=== PATIENT | male | born 1985 | race Hispanic/Latino ===

== ENCOUNTER 2023-01-11 19:37 | Emergency (ER) | payer BC ==
[~2023-01-11] VITALS: Ht 167.6 cm; Wt 139.3 kg
[~2023-01-11 19:37] MED LIST: ERYT1OIN7 OP
[2023-01-11] MEDS ORDERED: MAGNESIUM HYDROXIDE 30 ML/UDCUP PO SCH (20:00)
[2023-01-11] MEDS ORDERED: MORPHINE 2 MG SYG IVP ONE (22:00)
[2023-01-11] MEDS ORDERED: ONDANSETRON 4MG INJ IVP ONE (22:00)
[2023-01-11] MEDS ORDERED: 0.9%NACL 1000ML 1,000 ML IV ONE (22:00)
[2023-01-11] MEDS ORDERED: LACTATED RINGERS 1000ML 1,000 ML IV ONE (22:00)
[2023-01-11 22:01] VITALS: BP 128/63; PULSE 80; RESP 17; O2SAT 99
[2023-01-11 22:32] LABS: BASOPHILS # (AUTO) 0.07 K/uL (0.00-0.20); BASOPHILS % (AUTO) 0.5 % (0.0-5.0); EOSINOPHILS # (AUTO) 0.15 K/uL (0.00-0.70); HEMATOCRIT 38.8 % (42-54); IMMATURE GRANULOCYTE ABSOLUTE 0.14 K/uL (0-1); LYMPHOCYTES # (AUTO) 2.9 K/uL (1.0-4.8); LYMPHOCYTES % (AUTO) 19.2 % (21.0-51.0); MEAN CORPUSCULAR HEMOGLOBIN 27.2 pg (27.0-33.0); MEAN CORPUSCULAR VOLUME 82.4 fL (79-99); MONOCYTES # (AUTO) 0.8 K/uL (0.1-1.0); MONOCYTES % (AUTO) 5.3 % (3.0-13.0); NEUTROPHILS # (AUTO) 10.9 K/uL (1.8-7.7); NEUTROPHILS % (AUTO) 73.1 % (40.0-77.0); PLATELET COUNT (AUTO) 341 K/uL (130-400); RED BLOOD CELL COUNT(AUTO) 4.71 MIL/uL (4.50-6.20); WHITE BLOOD COUNT (AUTO) 14.9 K/uL (4.8-10.8)
[2023-01-11 22:48] LABS: CREATININE 0.8 mg/dL (0.5-1.5); POTASSIUM 3.6 mmol/L (3.5-5.1)
[2023-01-11 22:52] LABS: ALBUMIN 3.1 g/dL (3.5-5.0); BILIRUBIN,TOTAL 0.2 mg/dL (0.2-1.0); TOTAL PROTEIN, SERUM 7.1 g/dL (6.0-8.3)
[2023-01-11] MEDS ORDERED: IOHEXOL 350 MG/ML 100ML INFUS..BTL IV ONE (23:03)
[2023-01-11] MEDS ORDERED: IBUP-1493 PO (23:07)
[2023-01-11] MEDS ORDERED: OMEP40CA21 PO (23:07)
[2023-01-11] MEDS ORDERED: DOCU-116 PO (23:07)
== END 2023-01-11 23:50 | disposition home or self-care (01) ==
LOC: EDH 19:37
DX: K59.00 Constipation, unspecified (principal); R10.9 Unspecified abdominal pain; Z88.5 Allergy status to narcotic agent; Z88.8 Allergy status to other drugs, medicaments and biological substances
CPT/HCPCS: 99285; 74177; 96374; 76705; 71045; 96361; 96375; 82150; 82550; 84484; 80053; 83690; 85025; 36415; 93005; J7120; J2270; J7030; J2405; Q9967